=== PATIENT | female | born 1990 | race Caucasian/White ===

== ENCOUNTER 2021-01-13 21:09 | Inpatient (IN) | payer MEDICAID ==
[2021-01-13] MEDS ORDERED: Oxytocin/0.9 % Sodium Chloride 30 UNIT/500 ML BAG ONE (21:16)
[2021-01-13] MEDS ORDERED: Butorphanol 1 MG/ML SDV ONE (21:37)
[2021-01-13] MEDS ORDERED: Lidocaine 1% 50 ML MDV ONE (21:46)
--- NOTE | 2021-01-13 22:47 | PCM.DEL ---
L & D Note - General Info Date of Service: 01/13/21 Mother's Due Date: 01/18/21 - Delivery Note Labor: Spontaneous Delivery Outcome: Livebirth Infant Delivery Mode: Spontaneous Presentation: Left Occiput Anterior (KAUSHAL) Nuchal Cord: None (prolapsed cord) Prep: Other Anesthesia Type: Local Anesthetic: Lidocaine (Xylocaine) 0.5% Plain Local Anesthetic Volume: Other (15 ml) Amniotic Fluid Description: Clear Episiotomy Type: None Laceration: 2nd Degree Suture type: Vicryl Suture size: 3-0 Placenta: Intact, Spontaneous Cord: 2 Vessels Estimated Blood Loss: 200 Resuscitation Needed: Yes : Suctioned Score 1 min: 8 Score 5 min: 8 Delivery Comments (Free Text/Narrative):: 30 year old at 39 2/7 weeks gestation with a single visit in June at 9 weeks gestation confirming EDC 01-18-21, attempted home delivery, noted bright red bleeding and so presented to the hospital 9+ cm imminent delivery. Liveborn female 8/8 over 2nd degree laceration. See dictated delivery note. - General Info Date of Service: 01/13/21 - Patient Data Med Orders - Current: Current Medications Discontinued Medications Butorphanol Tartrate (Butorphanol 1 Mg/Ml Sdv) Confirm Administered Dose 1 mg .ROUTE .STK-MED ONE Stop: 01/13/21 21:38 Oxytocin/Sodium Chloride (Oxytocin 30 Unit/500 Ml-Ns) Confirm Administered Dose 30 unit in 500 mls @ as directed .ROUTE .STK-MED ONE Stop: 01/13/21 21:17 Lidocaine HCl (Lidocaine 1% 50 Ml Mdv) Confirm Administered Dose 50 ml .ROUTE .STK-MED ONE Stop: 01/13/21 21:47 Last Admin: 01/13/21 22:00 Dose: 50 ml Documented by: - Problem List & Annotations (1) Vaginal delivery SNOMED Code(s): 343927112 Code(s): O80 - ENCOUNTER FOR FULL-TERM UNCOMPLICATED DELIVERY Status: Acute Current Visit: Yes - Problem List Review Problem List Initiated/Reviewed/Updated: Yes
[2021-01-13] MEDS ORDERED: Lanolin 100% Cream 7 GM Tube TOP PRN (22:52)
[2021-01-13] MEDS ORDERED: Lidocaine 1% 50 ML MDV INJECT PRN (22:52)
[2021-01-13] MEDS ORDERED: Water For Irrigation,Sterile 1,000 ML Container IRR PRN (22:52)
[2021-01-13] MEDS ORDERED: Tranexamic Acid 1,000 MG in Sodium Chloride 0.9% 100 ML IV PRN (22:52)
[2021-01-13] MEDS ORDERED: Sodium Chloride 0.9% 10 ML Syringe FLUSH PRN (22:52)
[2021-01-13] MEDS ORDERED: Acetaminophen 500 MG Tab PO PRN ×2 (22:52)
[2021-01-13] MEDS ORDERED: Misoprostol 200 MCG Tab PO PRN (22:52)
[2021-01-13] MEDS ORDERED: Witch Hazel Medicated Pads 40/Jar TOP PRN (22:52)
[2021-01-13] MEDS ORDERED: Benzocaine/Menthol 20%-0.5% Spray 78 GM Cannister TOP PRN (22:52)
[2021-01-13] MEDS ORDERED: Sodium Chloride 0.9% 2.5 ML Syringe FLUSH PRN (22:52)
[2021-01-13] MEDS ORDERED: Butorphanol 1 MG/ML SDV IVPUSH PRN (22:52)
[2021-01-13] MEDS ORDERED: Sodium Chloride 0.9% 10 ML SDV IV PRN (22:52)
[2021-01-13] MEDS ORDERED: Ibuprofen 400 MG Tab PO PRN (22:52)
[2021-01-13] MEDS ORDERED: Nalbuphine 10 MG/1 ML Vial IVPUSH PRN (22:52)
[2021-01-13] MEDS ORDERED: Bisacodyl 10 MG Supp RECTAL PRN (22:52)
[2021-01-13] MEDS ORDERED: Docusate Sodium 100 MG Cap PO PRN (22:52)
[2021-01-13] MEDS ORDERED: Oxytocin/0.9 % Sodium Chloride 30 UNIT/500 ML BAG IV SCH (23:00)
[2021-01-13] MEDS ORDERED: Lactated Ringers 1,000 ML IV SCH (23:00)
[2021-01-13] MEDS: Ibuprofen 800 MG Tab PO PRN (23:25)
--- NOTE | 2021-01-14 00:52 | OR ---
SURGEON: Becky López M.D. DATE OF PROCEDURE: 01/13/2021 PREOPERATIVE DIAGNOSIS: 39 and 2/7 weeks intrauterine , active spontaneous labor. POSTOPERATIVE DIAGNOSES: 39 and 2/7 weeks intrauterine , active spontaneous labor, inadequate care, placental abruption, and unknown group B strep status and cord prolapse. BRIEF HISTORY: This is a 30-year-old female, G2, P 1-0-0-1. She presents at 39 and 2/7 weeks gestation in active spontaneous labor. She had a single visit in June at 9 weeks gestation where labs were obtained and 1st trimester ultrasound confirmed EDC of 01/18/2021. She has not had care since that time. She was planning a home . She had a american indian studies professor during her labor, which was 16 hours in length prior to arriving on Labor and Delivery. Her american indian studies professor was assisting her and then for some reason, left. She continued labor at home on her own and then she began to have bright red bleeding and recognizing this was not normal she presented to Labor and Delivery. She did have a [id number] amount of bright red bleeding. She was 9+ cm dilated, and I was notified of her arrival. Upon arriving in the room, she was bearing down uncontrollably. There was a moderate amount of dark red clot on the trucks approximately 50 mL. Examination showed her to be complete, right occiput anterior, and with the cord anterior to the head. Therefore, I had her in Jalen maneuver and over a single contraction, I was able to deliver the head over the perineum with support, and I did deliver the anterior and posterior shoulders without difficulty with subsequent delivery of the infant's body. The infant was bulb suctioned by nose and mouth. The mom declined cord clamping at 1 minute. She also declined to have the baby assessed at the warmer and please see PD pediatric notes. However, at 10 minutes, they were unable to keep the V sats over 80 and the patient did agree to have her cord cut at this point, doubly clamped and cut and the infant was handed over to the nurses in attendance at delivery who had been attending to the baby on the mother's abdomen. The infant was a liveborn female, scores of 8 and 8, weighing 3640 g. Cord blood was collected for cord blood sampling. However, due to the prolonged time to cord clamp, there was no arterial blood available for ABGs. 2- vessel cord was noted. Pitocin was initiated after delivery of the infant to assist with delivery of the placenta which was delivered spontaneously, Schultze intact with 2 vessels. There was a marginal abruption with a clot extending approximately 3 cm from the edge of the cotyledon surface and in length approximately 5 cm. The patient declined to have the placenta examined by pathology. She wanted to take it home. At this point, the patient did receive stadol IV. I utilized 15 mL of 1% lidocaine to thoroughly numb her perineum and vagina. There was a second-degree laceration, which was then repaired using a running lock suture of 3-0 Vicryl to reapproximate the vaginal mucosa. Deep [id number] sutures to support the perineum, and a running subcuticular suture to reapproximate the skin. Final sponge, needle, and instrument counts were correct. There were no complications with the delivery, and mother and baby are in LDR in good condition. PENNIE / ИВАН /[id number]
--- NOTE | 2021-01-14 08:00 | PCM.PNPP ---
- General Info Date of Service: 01/14/21 Functional Status: Reports: Pain Controlled, Tolerating Diet, Ambulating, Urinating - Review of Systems General: Reports: No Symptoms HEENT: Reports: No Symptoms Pulmonary: Reports: No Symptoms Cardiovascular: Reports: No Symptoms Gastrointestinal: Reports: No Symptoms Genitourinary: Reports: No Symptoms Musculoskeletal: Reports: No Symptoms Skin: Reports: No Symptoms Neurological: Reports: No Symptoms Psychiatric: Reports: No Symptoms - General Info Date of Service: 01/14/21 - Patient Data Vital Signs - Most Recent: Last Vital Signs Temp 36.9 C 01/14/21 05:00 Pulse 110 H 01/14/21 05:00 Resp 16 01/14/21 05:00 BP 124/69 01/14/21 05:00 Pulse Ox 97 01/14/21 05:00 Weight - Most Recent: 119.295 kg Lab Results - Last 24 Hours: Laboratory Results - last 24 hr 01/13/21 01/13/21 01/14/21 Range/Units 21:00 21:00 06:34 WBC 16.77 H (4.0-11.0) K/uL RBC 4.31 (4.30-5.90) M/uL Hgb 11.6 L 9.7 L (12.0-16.0) g/dL Hct 35.6 L 30.4 L (36.0-46.0) % MCV 82.6 (80.0-98.0) fL MCH 26.9 L (27.0-32.0) pg MCHC 32.6 (31.0-37.0) g/dL RDW Std Deviation 46.8 (28.0-62.0) fl RDW Coeff of Prem 16 H (11.0-15.0) % Plt Count 407 H (150-400) K/uL MPV 10.40 (7.40-12.00) fL Nucleated RBC % 0.0 /100WBC Nucleated RBCs # 0 K/uL Blood Type O POSITIVE Antibody Screen NEGATIVE Med Orders - Current: Current Medications Acetaminophen (Acetaminophen 500 Mg Tab) 500 mg PO Q4H PRN PRN Reason: Pain (mild 1-3) Acetaminophen (Acetaminophen 500 Mg Tab) 1,000 mg PO Q4H PRN PRN Reason: Pain (mild 1-3) Benzocaine/Menthol (Benzocaine/Menthol 20%-0.5% Regan 78 Gm Cannister) 78 gm TOP ASDIRECTED PRN PRN Reason: Perineal Comfort Measure Last Admin: 01/13/21 23:26 Dose: 1 canister Documented by: Bisacodyl (Bisacodyl 10 Mg Supp) 10 mg RECTAL ONETIME PRN PRN Reason: Constipation Butorphanol Tartrate (Butorphanol 1 Mg/Ml Sdv) 1 mg IVPUSH Q1H PRN PRN Reason: Pain (severe 7-10) Docusate Sodium (Docusate Sodium 100 Mg Cap) 100 mg PO Q12H PRN PRN Reason: Constipation Emollient Ointment (Lanolin 100% Cream 7 Gm Tube) 0 gm TOP ASDIRECTED PRN PRN Reason: Sore Nipples Lactated Ringer's (Ringers, Lactated) 1,000 mls @ 150 mls/hr IV ASDIRECTED [facility] Last Admin: 01/13/21 21:10 Dose: 150 mls/hr Documented by: Oxytocin/Sodium Chloride (Oxytocin 30 Unit/500 Ml-Ns) 30 unit in 500 mls @ 999 mls/hr IV TITRATE [facility] Last Admin: 01/13/21 21:16 Dose: 999 mls/hr Documented by: Tranexamic Acid 1,000 mg/ (Sodium Chloride) 110 mls @ 660 mls/hr IV ONETIME PRN PRN Reason: Bleeding Ibuprofen (Ibuprofen 400 Mg Tab) 400 mg PO Q4H PRN PRN Reason: Pain (mild 1-3) Ibuprofen (Ibuprofen 800 Mg Tab) 800 mg PO Q6H PRN PRN Reason: Pain (mild 1-3) Last Admin: 01/13/21 23:25 Dose: 800 mg Documented by: Lidocaine HCl (Lidocaine 1% 50 Ml Mdv) 50 ml INJECT ONETIME PRN PRN Reason: Laceration repair Misoprostol (Misoprostol 200 Mcg Tab) 200 mcg PO ONETIME PRN PRN Reason: Post Hemorrhage Nalbuphine HCl (Nalbuphine 10 Mg/1 Ml Vial) 10 mg IVPUSH Q1H PRN PRN Reason: Pain (severe 7-10) Sodium Chloride (Sodium Chloride 0.9% 10 Ml Syringe) 10 ml FLUSH ASDIRECTED PRN PRN Reason: Keep Vein Open Sodium Chloride (Sodium Chloride 0.9% 2.5 Ml Syringe) 2.5 ml FLUSH ASDIRECTED PRN PRN Reason: Keep Vein Open Sodium Chloride (Sodium Chloride 0.9% 10 Ml Sdv) 10 ml IV ASDIRECTED PRN PRN Reason: IV Use Sterile Water (Water For Irrigation,Sterile 1,000 Ml Container) 1,000 ml IRR ASDIRECTED PRN PRN Reason: delivery Witch Lorie (Witch Lorie Medicated Pads 40/Jar) 1 pad TOP ASDIRECTED PRN PRN Reason: comfort care Last Admin: 01/13/21 23:26 Dose: 1 tub Documented by: Discontinued Medications Butorphanol Tartrate (Butorphanol 1 Mg/Ml Sdv) Confirm Administered Dose 1 mg .ROUTE .STK-MED ONE Stop: 01/13/21 21:38 Last Admin: 01/13/21 21:45 Dose: 1 mg Documented by: Oxytocin/Sodium Chloride (Oxytocin 30 Unit/500 Ml-Ns) Confirm Administered Dose 30 unit in 500 mls @ as directed .ROUTE .STK-MED ONE Stop: 01/13/21 21:17 Lidocaine HCl (Lidocaine 1% 50 Ml Mdv) Confirm Administered Dose 50 ml .ROUTE .STK-MED ONE Stop: 01/13/21 21:47 Last Admin: 01/13/21 22:00 Dose: 50 ml Documented by: - Interaction Disposition, : in Room with Family Feeding: Breastfed Infant; Nursed Well Support Person: - Recovery Exam Fundal Tone: Firm Fundal Level: 1 Fingerbreadths Below Umbilicus Fundal Placement: Midline Lochia Amount: Scant, Small Lochia Color: Rubra/Red Perineum Description: Other (see below) Other Perinuem Description: Second degree tear,repaired Bladder Status: Nonpalpable Urinary Elimination: Voided - Exam General: Alert, Oriented Neck: Supple Lungs: Normal Respiratory Effort GI/Abdominal Exam: Soft, Non-Tender, No Distention Extremities: Non-Tender, No Pedal Edema Skin: Warm, Dry, Intact Neurological: No New Focal Deficit Psy/Mental Status: Alert, Normal Affect, Normal Mood - Problem List & Annotations (1) Vaginal delivery SNOMED Code(s): 943774417 Code(s): O80 - ENCOUNTER FOR FULL-TERM UNCOMPLICATED DELIVERY Status: Acute Current Visit: Yes - Problem List Review Problem List Initiated/Reviewed/Updated: Yes - My Orders Last 24 Hours: My Active Orders 01/13/21 Dinner Regular Diet [DIET] 01/13/21 21:00 RPR (SYPHILIS SERO) W/ RFLX [REF] Routine 01/13/21 22:52 Patient Status [ADT] Routine May Shower [RC] ASDIRECTED Up ad Carrie [RC] ASDIRECTED Vital Signs [RC] PER UNIT ROUTINE Acetaminophen [Tylenol Extra Strength] 1,000 mg PO Q4H PRN Acetaminophen [Tylenol Extra Strength] 500 mg PO Q4H PRN Benzocaine/Menthol [Dermoplast Pain Relief 20%-0.5% Regan] 78 gm TOP ASDIRECT ED PRN Butorphanol [Stadol] 1 mg IVPUSH Q1H PRN Docusate Sodium [Colace] 100 mg PO Q12H PRN Ibuprofen [Motrin] 400 mg PO Q4H PRN Ibuprofen [Motrin] 800 mg PO Q6H PRN Lanolin [Lansinoh HPA] See Dose Instructions TOP ASDIRECTED PRN Lidocaine 1% [Xylocaine 1%] 50 ml INJECT ONETIME PRN Nalbuphine [Nubain] 10 mg IVPUSH Q1H PRN Sodium Chloride 0.9% [Normal Saline] 10 ml IV ASDIRECTED PRN Sodium Chloride 0.9% [Saline Flush] 10 ml FLUSH ASDIRECTED PRN Sodium Chloride 0.9% [Saline Flush] 2.5 ml FLUSH ASDIRECTED PRN Tranexamic Acid [Cyklokapron] 1,000 mg Sodium Chloride 0.9% [Normal Saline] 100 ml IV ONETIME Water For Irrigation,Sterile [Sterile Water for Irrigation] 1,000 ml IRR ASDIRECTED PRN bisacodyL [Dulcolax] 10 mg RECTAL ONETIME PRN miSOPROStoL [Cytotec] 200 mcg PO ONETIME PRN witch Lorie [Tucks] 1 pad TOP ASDIRECTED PRN Assess Lochia [WOMSER] Per Unit Routine Assess Uterine Involution [WOMSER] Per Unit Routine Scalp Electrode [WOMSER] Per Unit Routine Peripheral IV Discontinue [OM.PC] Routine Peripheral IV Insertion Adult [OM.PC] Routine Resuscitation Status Routine 01/13/21 23:00 Lactated Ringers [Ringers, Lactated] 1,000 ml IV ASDIRECTED Oxytocin/0.9 % Sodium Chloride [Oxytocin 30 Unit/500 ML-NS] 30 unit in 500 ml IV TITRATE - Assessment Assessment:: PPD#1 after complicated by no recent care, cord prolapse, partial placental abruption. Stable Rh positive Rubella immune - Plan Plan:: Discharge instructions reviewed. May discharge when baby is discharged. Discussed importance of keeping appt.
[2021-01-14] MEDS: Ibuprofen 800 MG Tab PO PRN (08:36)
--- NOTE | 2021-01-14 09:22 | HP ---
DATE OF : 1990 PRIMARY CARE PHYSICIAN: None PCP CHIEF COMPLAINT: Labor. HISTORY OF PRESENT ILLNESS: This is a 30-year-old female, G2, P 1-0-0-1. She had a single visit on 06/15/2020, at which time, EDC of 01/18/2021 was confirmed by transvaginal ultrasound, consistent with LMP. She did not present again to clinic for care and was cared for by a wired sweatband cutter. She had a 16-hour labor progress, at which time the wired sweatband cutter was no longer with her, and she noted bright red bleeding. She presented to Labor and Delivery in active spontaneous labor, 9+ cm dilated. She has not had a group B strep screening. Spontaneous rupture of membranes occurred at an unknown time prior to admission, and she is being admitted for labor. PAST MEDICAL HISTORY: Positive for depression. PAST SURGICAL HISTORY: None. PAST HOSPITALIZATION: She had a broken nose as a toddler. 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 LMP 04/13/2020. Menstrual formula 13 x 28 x 3-5. She is sexually active. She has no history of sexually transmitted infection. SOCIAL HISTORY: She denies use of tobacco or street drugs. She drinks rarely, and not during the . She is . FAMILY HISTORY: The father is alive with mental health issues and heart problems. Sibling is alive with mental health issue. Father of the baby has a half brother with a heart defect. ALLERGIES: She has no known drug allergies. MEDICATIONS: Early in the , she was on Effexor XR 75 mg, vitamins, vitamin D, and vitamin B6. PAST OB HISTORY: In 2007, she had a spontaneous vaginal delivery of a live-born male, 7 pounds 6 ounces. REVIEW OF SYSTEMS: CONSTITUTIONAL: Negative for headache or visual changes. She has noted increased swelling in her lower extremities. CARDIOVASCULAR: Negative. PULMONARY: Negative. RHEUMATOLOGIC: Negative. DERMATOLOGIC: Negative. LABORATORY STUDIES: At her new OB visit; HIV was negative, hepatitis C negative, CBC was within normal limits, RPR negative, antibody screen negative, gonorrhea and chlamydia negative, she is blood type O positive, rubella immune, hepatitis B is negative, Pap NILM, and negative HPV. PHYSICAL EXAMINATION: VITAL SIGNS: Blood pressure 155/78. heart tones were category II. Contractions every 3 minutes. GENERAL: She is alert and oriented. She is in labor. LUNGS: Clear. CARDIOVASCULAR: Regular rate without murmur. ABDOMEN: Soft, gravid, and nontender. EXTREMITIES: 1+ edema. Equal bilaterally. VAGINAL: Complete, +2 station. ASSESSMENT AND PLAN: This is a 39-2/7 week intrauterine , limited care, none since June of 2020. Known 2-vessel cord. Admit for labor management. She has unknown group B strep status due no recent care. PENNIE / ИВАН /[id number]
== END 2021-01-14 16:31 | disposition home or self-care (01) | DRG 805 ==
LOC: MW.OBCHECK 21:09 → MW.OB 21:10 → MW.OBCHECK 21:16 → OBSVTOIN 21:16 → MW.OB 01-14 02:49
PROVIDERS: ADMIT Obstetrics & Gynecology; ATTEND Obstetrics & Gynecology
PROC: 10E0XZZ Delivery of Products of Conception, External Approach (ICD-10-PCS; principal; 2021-01-13)
PROC: 0KQM0ZZ Repair Perineum Muscle, Open Approach (ICD-10-PCS; 2021-01-13)
PROC: 10907ZC Drainage of Amniotic Fluid, Therapeutic from Products of Conception, Via Natural or Artificial Opening (ICD-10-PCS; 2021-01-13)
DX: O69.0XX0 Labor and delivery complicated by prolapse of cord, not applicable or unspecified (principal); O45.93 Premature separation of placenta, unspecified, third trimester; Z37.0 Single live birth; Z3A.39 39 weeks gestation of pregnancy; O70.1 Second degree perineal laceration during delivery
CPT/HCPCS: 36415; 59025; 59409; 85014; 85018; 85027; 86592; 86850; 86900; 86901; A9270-GY; J0595; J2001; J2590; J7120

== ENCOUNTER 2022-02-24 11:55 | Inpatient (IN) | payer MEDICAID ==
[2022-02-24] MEDS ORDERED: Methylergonovine 0.2 MG/1 ML Amp IM PRN (11:58)
[2022-02-24] MEDS ORDERED: Carboprost Tromethamine 250 MCG/1 ML Amp IM PRN (11:58)
[2022-02-24] MEDS ORDERED: Butorphanol 1 MG/ML SDV IVPUSH PRN (11:58)
[2022-02-24] MEDS ORDERED: Tranexamic Acid 1,000 MG in Sodium Chloride 0.9% 100 ML IV PRN (11:58)
[2022-02-24] MEDS ORDERED: Lidocaine 1% 50 ML MDV INJECT PRN (11:58)
[2022-02-24] MEDS ORDERED: Water For Irrigation,Sterile 1,000 ML Container IRR PRN (11:58)
[2022-02-24] MEDS ORDERED: Sodium Chloride 0.9% 20 ML SDV IV PRN (11:58)
[2022-02-24] MEDS ORDERED: Misoprostol 200 MCG Tab PO PRN (11:58)
[2022-02-24] MEDS ORDERED: Sodium Chloride 0.9% 10 ML Syringe FLUSH PRN (11:58)
[2022-02-24] MEDS ORDERED: Sodium Chloride 0.9% 2.5 ML Syringe FLUSH PRN (11:58)
[2022-02-24] MEDS ORDERED: Oxytocin/0.9 % Sodium Chloride 30 UNIT/500 ML BAG IV SCH (12:00)
[2022-02-24] MEDS ORDERED: Misoprostol 25 MCG (1/4 of 100 MCG) Tab PO ONE (12:29)
[2022-02-24] MEDS ORDERED: Misoprostol 25 MCG (1/4 of 100 MCG) Tab VAG ONE (12:32)
[2022-02-24] MEDS ORDERED: ePHEDrine 50 MG/ML SDV IVPUSH PRN ×2 (12:55)
[2022-02-24] MEDS ORDERED: Ropivacaine HCl/PF 400 MG in Premix Bag 1 BAG EPIDUR SCH (13:00)
[2022-02-24] MEDS: Ondansetron 4 MG/2 ML SDV IVPUSH PRN (23:43)
[2022-02-25] MEDS ORDERED: Oxytocin/0.9 % Sodium Chloride 30 UNIT/500 ML BAG IV SCH (04:48)
[2022-02-25] MEDS: Lactated Ringers 1,000 ML IV SCH ×2 (05:10→06:30)
[2022-02-25] MEDS: Ondansetron 4 MG/2 ML SDV IVPUSH PRN (07:25)
[2022-02-25] MEDS ORDERED: fentaNYL 100 MCG/2 ML SDV ONE (09:36)
[2022-02-25] MEDS ORDERED: Dexamethasone 4 MG/ML 5 ML MDV ONE (09:40)
[2022-02-25] MEDS ORDERED: oxyCODONE 5 MG Tab PO PRN (09:55)
[2022-02-25] MEDS ORDERED: Lanolin 100% Cream 7 GM Tube TOP PRN (09:55)
[2022-02-25] MEDS ORDERED: Acetaminophen 500 MG Tab PO PRN ×2 (09:55)
[2022-02-25] MEDS ORDERED: Benzocaine/Menthol 20%-0.5% Spray 78 GM Cannister TOP PRN (09:55)
[2022-02-25] MEDS ORDERED: Bisacodyl 10 MG Supp RECTAL PRN (09:55)
[2022-02-25] MEDS ORDERED: Witch Hazel Medicated Pads 40/Jar TOP PRN (09:55)
[2022-02-25] MEDS ORDERED: Ibuprofen 400 MG Tab PO PRN (09:55)
[2022-02-25] MEDS ORDERED: Docusate Sodium 100 MG Cap PO PRN (09:55)
[2022-02-25] MEDS ORDERED: Ondansetron 4 MG/2 ML SDV ONE (10:21)
[2022-02-25] MEDS ORDERED: Ketorolac 30 MG/ML SDV IVPUSH PRN (11:02)
[2022-02-25] MEDS ORDERED: Acetaminophen 1,000 MG in Premix Bag 1 BAG IV PRN (16:30)
[2022-02-25] MEDS: Ibuprofen 800 MG Tab PO PRN (21:02)
[2022-02-26] MEDS: Ibuprofen 800 MG Tab PO PRN (06:25)
== END 2022-02-26 12:15 | disposition home or self-care (01) | DRG 807 ==
LOC: MW.OBCHECK 11:55 → MW.OB 11:55 → MW.OBCHECK 11:57 → MW.OB 11:58 → OBSVTOIN 02-25 09:25 → MW.OB 02-26 07:54
PROVIDERS: ADMIT Obstetrics & Gynecology; ATTEND Obstetrics & Gynecology
PROC: 10E0XZZ Delivery of Products of Conception, External Approach (ICD-10-PCS; principal; 2022-02-25)
PROC: 10907ZC Drainage of Amniotic Fluid, Therapeutic from Products of Conception, Via Natural or Artificial Opening (ICD-10-PCS; 2022-02-25)
PROC: 3E0R3BZ Introduction of Anesthetic Agent into Spinal Canal, Percutaneous Approach (ICD-10-PCS; 2022-02-25)
PROC: 00HU33Z Insertion of Infusion Device into Spinal Canal, Percutaneous Approach (ICD-10-PCS; 2022-02-25)
DX: O30.003 Twin pregnancy, unspecified number of placenta and unspecified number of amniotic sacs, third trimester (principal); Z37.2 Twins, both liveborn; Z3A.38 38 weeks gestation of pregnancy; Z20.822 Contact with and (suspected) exposure to COVID-19
CPT/HCPCS: 01967; 36415; 51702; 59025; 59409; 85014; 85018; 85027; 86592; 86850; 86900; 86901; A9270-GY; J0131; J1100; J1885; J2405; J2590; J3010; J7120; U0002